=== PATIENT | female | born 1960 | race Caucasian/White ===

== ENCOUNTER 2021-03-10 11:59 | Emergency (ER) | payer OTHER ==
[~2021-03-10 11:59] MED LIST: DULOXETINE HCL30 MG PO; FLUVOXAMINE MAL25 MG PO; SKELAXIN800 MG PO; VOLTAREN **OUT75 MG PO
[2021-03-10 13:50] LABS: EOSINOPHIL 5.5 % (0-5); HCT 44.4 % (37.0-47.0); HGB 14.8 g/dl (12.5-16.0); LYMPHOCYTE 23.9 % (15-48); MCH 30.1 pg (25.0-31.0); MCHC 33.3 g/dL (32.0-36.0); MCV 90.4 fL (78.0-100.0); MONOCYTE 8.7 % (0-12); MPV 9.6 fL (6.0-9.5); NEUTROPHIL 60.7 % (41-80); NRBC 0; PLT 299 K/uL (150-400); RBC 4.91 M/uL (4.20-5.40); WBC 6.2 K/uL (4.0-10.5)
[2021-03-10 14:00] LABS: BUN/CREAT RATIO (CALC) 25.6 RATIO; CREATININE 0.82 mg/dL (0.51-0.95); POTASSIUM 4.7 mmol/L (3.5-5.1)
[2021-03-10 14:26] LABS: CORONAVIRUS 2019 SARS-COV-2 NEGATIVE (NEGATIVE); INFLUENZA A NAA NEGATIVE (NEGATIVE)
[2021-03-10] MEDS ORDERED: MEDROL 4MG DOSEP4 MG PO (14:56)
[2021-03-10] MEDS ORDERED: TESSALON PERLE100 MG PO (14:56)
== END 2021-03-10 15:38 | disposition home or self-care (01) ==
LOC: FER 11:59
PROVIDERS: Nurse Practitioner Family
DX: J02.9 Acute pharyngitis, unspecified (principal); K21.9 Gastro-esophageal reflux disease without esophagitis; R05.9 Cough, unspecified; F17.290 Nicotine dependence, other tobacco product, uncomplicated; Z20.822 Contact with and (suspected) exposure to COVID-19
CPT/HCPCS: 36415; 71046; 80048; 85025; 87880; J1100; J1885; J7030; U0002